=== PATIENT | male | born 1955 | race Asian ===

== ENCOUNTER 2020-05-30 15:02 | Outpatient (CLI) | payer MEDICARE, BC ==
--- NOTE | 2020-05-30 15:26 | RAD ---
EXAM: Two views chest PROVIDED CLINICAL HISTORY: Cough COMPARISON: 09/28/2019 FINDINGS: Cardiac and mediastinal silhouette appears within normal limits. Lungs appear free of significant opa city. No pleural fluid or pneumothorax apparent. IMPRESSION: No evidence for an acute cardiopulmonary process.
== END 2020-05-30 15:03 | disposition home or self-care (01) ==
LOC: BICRAD 15:02
PROVIDERS: ATTEND Internal Medicine
DX: R05 Cough (principal)
CPT/HCPCS: 71046

== ENCOUNTER 2023-02-11 08:54 | Outpatient (CLI) | payer MEDICARE, BC | END 2023-02-11 08:55 | disposition home or self-care (01) | LOC: BICRAD 08:54 | PROVIDERS: ATTEND Internal Medicine | DX: R05.9 Cough, unspecified (principal) | CPT/HCPCS: 71046 ==

== ENCOUNTER 2023-02-28 07:37 | Outpatient (CLI) | payer MEDICARE, BC | END 2023-02-28 07:38 | disposition home or self-care (01) | LOC: ULT 07:37 → BICULT 07:38 | PROVIDERS: ATTEND Internal Medicine | DX: K80.20 Calculus of gallbladder without cholecystitis without obstruction (principal); R79.89 Other specified abnormal findings of blood chemistry; N28.1 Cyst of kidney, acquired | CPT/HCPCS: 76700 ==

== ENCOUNTER 2024-03-24 11:23 | Outpatient (CLI) | payer MEDICARE | END 2024-03-24 11:24 | disposition home or self-care (01) | LOC: BICRAD 11:23 | PROVIDERS: ATTEND Internal Medicine | DX: R05.9 Cough, unspecified (principal) | CPT/HCPCS: 71046 ==